=== PATIENT | female | born 1975 | race African-American/Black ===

== ENCOUNTER 2017-04-17 03:46 | Inpatient (IN) | payer MEDICAID ==
[2017-04-17] MEDS ORDERED: SUBLIMAZE IV ONE (05:06)
[2017-04-17] MEDS ORDERED: LACTATED RINGERS 1,000 ML IV ONE (05:06)
[2017-04-17 05:48] LABS: Hematocrit 40.5 % (30.3-42.9); Hemoglobin 13.2 gm/dl (10.1-14.3); Mean Corpuscular HGB Conc 33 % (30-34); Mean Corpuscular Hemoglobin 28 pg (28-32); Mean Corpuscular Volume 86 fl (79-97); Platelet Count 218 K/mm3 (140-440); Red Blood Count 4.71 M/mm3 (3.65-5.03); Red Cell Distribution Width 13.8 % (13.2-15.2); White Blood Count 13.2 K/mm3 (4.5-11.0)
[2017-04-17] MEDS: LACTATED RINGERS 1,000 ML IV SCH ×4 (06:22→23:20)
[2017-04-17] MEDS ORDERED: ePHEDrine SULFATE ONE ×2 (06:28→10:24)
[2017-04-17] MEDS ORDERED: ePHEDrine SULFATE IV PRN (06:51)
[2017-04-17] MEDS ORDERED: NARCAN 2 MG/2 ML IV PRN (06:51)
[2017-04-17] MEDS ORDERED: fentaNYL-BUPIV 2 MCG/ML-0.125% 200 MCG/100 ML BAG EPIDURAL ONE (06:51)
--- NOTE | 2017-04-17 06:51 | Anesthesia Consultation ---
Anesthesia Consult and Med Hx Date of service: 04/17/17 - Airway Anesthetic Teeth Evaluation: Good ROM Head & Neck: Adequate Mental/Hyoid Distance: Adequate Intubation Access Assessment: Probably Good - Pre-Operative Health Status ASA Pre-Surgery Classification: ASA2, Emergency Proposed Anesthetic Plan: Epidural, Spinal - Pulmonary Hx Asthma: No COPD: No Hx Pneumonia: No - Cardiovascular System Hx Hypertension: No - Central Nervous System Hx Seizures: No Hx Psychiatric Problems: No - Endocrine Hx Renal Disease: No Hx End Stage Renal Disease: No Hx Hypothyroidism: No Hx Hyperthyroidism: No - Hematic Hx Anemia: No Hx Sickle Cell Disease: No - Other Systems Hx Alcohol Use: No
[2017-04-17] MEDS ORDERED: fentaNYL-BUPIV 2 MCG/ML-0.125% 200 MCG/100 ML BAG EPIDURAL SCH (07:00)
[2017-04-17] MEDS ORDERED: PITOCin/NS 20 UNIT/1000ML DRIP 20,000 MILLIUNITS/1,000 ML BAG IV ONE (07:38)
--- NOTE | 2017-04-17 07:46 | History and Physical Report ---
History of Present Illness Date of examination: 04/17/17 Date of admission: 04/17/17 05:37 Chief complaint: contractions History of present illness: Pt presents in active labor. EDC Calculations LMP: 04/29/2018 Past History : 3 Term Births: 1 Living Children: 1 Para: 1 Aborta: 1 Spont. Ab: 1 # 1 Delivery date: 05/25/2015 Delivery type: SAB # 2 Delivery date: 10/11/2015 Weeks Gestation: 40+4d Delivery type: Delivery location: [place] Sex: Male weight: 6-8 Past Medical History: Negative Past Medical History Past Surgical History: negative Past Medical History Anesthesia Complications: negative Anemia: negative Autoimmune Disorder: negative Bleeding Disorder: negative Blood Transfusions: negative Breast Disease: negative Diabetes: negative Heart Disease: negative Hypertension: negative Hepatitis/Liver Disease: negative Kidney Disease/UTI: negative Neurologic/Epilepsy/Migraines: negative Phlebitis/Varicosities: negative Psychiatric: negative Pulmonary Disease/Asthma: negative Thyroid Disease: negative Hospitalizations: negative Surgery (Non-rn practitioner): negative Abnormal PAP: negative ALTHEA Exposure: negative Infertility: negative Uterine Anomaly: negative Uterine Surgery (not C/S): negative Other Gynecologic Problems: negative Infection History Hx of STD: none Personal hx. of genital herpes: no Partner hx. of genital herpes: no Varicella/Chicken Pox Status: Previous Disease TB Risk: no Genetic History ADVANCED MATERNAL AGE Congenital Heart Defect: Mom: no Dad: no Anjelica Disease: Mom: no Dad: no Thalassemia Mom: no Dad: no Neural Tube Defect Mom: no Dad: no Down's Syndrome Mom: no Dad: no Denys-Sachs Mom: no Dad: no Sickle Cell Disease/Trait Mom: no Dad: no Hemophilia Mom: no Dad: no Muscular Dystrophy Mom: no Dad: no Cystic Fibrosis Mom: no Dad: no [place] Chorea Mom: no Dad: no Mental Retardation Mom: no Dad: no Fragile X Mom: no Dad: no Other Genetic/Chromosomal Disorder Mom: no Dad: no Child w/other defect Mom: no Dad: no Enviromental Exposures Xray Exposure: no Medication, drug, or alcohol use since LMP: no Chemical/Other Exposure: no Exposure to Cat Liter: no Hx of Parvovirus (Fifth Disease): no Active Medications (reviewed today): PNV () Current Allergies (reviewed today): No known allergies Past History Past Medical History: no pertinent history Past Surgical History: no surgical history 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 PAP smear Family/Genetic History: none Social history: no significant social history, - Obstetrical History Expected Date of Delivery: 04/29/17 Actual Gestation: 38 Week(s) 2 Day(s) : 3 Spontaneous Abortions: 1 Number of Living Children: 1 Medications and Allergies Allergies Allergy/AdvReac Type Severity Reaction Status Date / Time No Known Allergies Allergy Unverified 04/17/17 03:52 Active Meds: Active Medications Ephedrine Sulfate (Ephedrine Sulfate) 10 mg IV Q2M PRN PRN Reason: Hypotension Stop: 04/17/17 15:00 Last Admin: 04/17/17 07:01 Dose: 10 mg Lactated Ringer's (Lactated Ringers) 1,000 mls @ 125 mls/hr IV DIRECT JHON Last Admin: 04/17/17 07:23 Dose: 125 mls/hr Fentanyl/Bupivacaine/Sodium Chlor (Fentanyl-Bupiv 2 Mcg/Ml-0.125%) 200 mcg in 100 mls @ 12 mls/hr EPIDURAL TITR JHON PRN Reason: Protocol Last Admin: 04/17/17 07:21 Dose: 12 mls/hr Naloxone HCl (Narcan 2 Mg/2 Ml) 0.2 mg IV Q5M PRN PRN Reason: Respiratory sedation Stop: 04/17/17 23:59 Review of Systems All systems: negative - Vital Signs Vital signs: Vital Signs Pulse BP 69 122/83 04/17/17 04:00 04/17/17 04:00 Temp Pulse Resp BP Pulse Ox 98.5 F 84 18 97/53 93 04/17/17 05:36 04/17/17 07:48 04/17/17 05:36 04/17/17 07:47 04/17/17 07:48 - Physical Exam Lungs: Positive: Normal air movement Abdomen: Positive: normal appearance, soft, normal bowel sounds. Negative: distention, tenderness, guarding Genitourinary (Female): Positive: normal external genitalia, normal perenium - Obstetrical FHR: category 1 Cervical Dilatation: 8.5 (AROM-CLEAR FLUID NOTED) Cervical Effacement Percentage: 90 station: -1 Uterine Contraction Frequency (min): mild Uterine Contraction Pattern: Regular Results Result Diagrams: 04/17/17 05:30 Abnormal lab results 04/17/17 Range/Units 05:30 WBC 13.2 H (4.5-11.0) K/mm3 All other labs normal. Assessment and Plan - Patient Problems (1) 38 weeks gestation of Current Visit: Yes Status: Acute (2) AMA (advanced maternal age) multigravida 35+ Current Visit: Yes Status: Acute Qualifiers: Trimester: T (3) Gestational diabetes mellitus Current Visit: Yes Status: Acute Qualifiers: Gestational diabetes mellitus control: G Trimester: T (4) Active labor at term Current Visit: Yes Status: Acute Plan to address problem: -start pitocin at this time -anticipate vaginal delivery
[2017-04-17] MEDS ORDERED: PITOCin/NS 30 UNIT/500ML 30 UNITS/500 ML BAG IV SCH (09:00)
[2017-04-17] MEDS ORDERED: MINERAL OIL ONE (09:29)
[2017-04-17] MEDS ORDERED: BICITRA ONE (09:47)
[2017-04-17] MEDS ORDERED: REGLAN ONE (09:48)
[2017-04-17] MEDS ORDERED: PEPCID IV ONE (09:48)
[2017-04-17] MEDS ORDERED: ANCEF/STERILE WATER 2 GM/20 ML 2 GM/20 ML SYRINGE IV ONE (10:03)
[2017-04-17] MEDS ORDERED: XYLOCAINE MPF 2% ONE ×2 (10:06→10:48)
[2017-04-17] MEDS ORDERED: MORPHINE ONE ×2 (10:16)
[2017-04-17] MEDS ORDERED: WATER FOR IRRIG STERILE IR ONE (10:32)
[2017-04-17] MEDS ORDERED: NACL 0.9% IR ONE (10:34)
[2017-04-17] MEDS ORDERED: VERSED ONE (10:52)
[2017-04-17] MEDS ORDERED: SUBLIMAZE ONE (10:57)
[2017-04-17] MEDS ORDERED: ZOFRAN IV PRN (11:20)
[2017-04-17] MEDS ORDERED: NARCAN 0.4 MG/1 ML IV PRN ×2 (11:20→11:46)
--- NOTE | 2017-04-17 11:20 | Anesthesia Day of Surgery ---
Anesthesia Day of Surgery - Day of Surgery Patient Examined: Yes Patient H&P Reviewed: Yes Patient is NPO: Yes
--- NOTE | 2017-04-17 11:45 | Operative Report ---
Operative Report Operative Report: Date of procedure: 04/17/2017 Pre-operative diagnosis: 38 week gestation Advanced maternal age Gestational diabetes Failure to descend Desires permanent sterilization Post-operative diagnosis: Same plus uterine fibroids Procedure name(s): Primary low transverse section via Pfannenstiel skin incision Bilateral tubal ligation via modified Hague method hemorrhage Surgeon: Dr. 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 50 mL of blood-tinged urine at end of the procedure Fluids: 2 L Findings: Liveborn female in direct OP presentation. Weight 6 lbs. 1 oz. Apgars of 8 and 9 at one and 5 minutes. Enlarged uterus with approximately 4-5 fibroids noted ranging in size is from 5 cm to 2 cm on the posterior fundal and anterior portion of the uterus Grossly normal fallopian tubes and ovaries bilaterally Indications: Patient presented in active labor. Patient progressed to completely dilated completely effaced and 0 station. With pushing patient was noted to have deep variables that were repetitive. With pushing patient was also noted not to have a change in station. Decision was made at that time to proceed to the operating room for primary due to failure to descend and category 2 tracing. Procedure: Patient was taking to the operating room. Patient was then prepped and draped in sterile fashion after anesthesia was found to be adequate. A low transverse skin incision was made with the scalpel through previous incisional scar and carried down to the underlying layer of fascia with the Bovie. The fascia was then incised in the midline and this incision was extended bilaterally with the Bovie. The superior aspect of the fascia was grasped with Florencia clamps tented upward and dissected off of the anterior rectus muscles with the Bovie. In similar fashion the inferior aspect of the fascia was grasped with Florencia clamps tented upward and dissected off of the anterior rectus muscles. The rectus muscles were then bluntly divided in the midline. The peritoneum was identified and entered into sharply. The bladder blade was placed. The bladder flap was created using the Metzenbaum scissors. The bladder blade was replaced. A lower transverse uterine incision was made with the scalpel and extended bilaterally with the bandage scissors. The infant's head was then delivered atraumatically. The anterior shoulder and rest of infant delivered without difficulty. There was a body cord 1 that was easily reduced. The umbilical cord was clamped x2. The cord was cut. The was then placed in sterile bassinet. The placenta was manually extracted in its entirety. The uterus was exteriorized and cleared of all clots and debris. The uterine incision was closed using 0 Vicryl in a running locking fashion. A second imbricating layer of the same suture was then created. Attention was then turned to the fallopian tubes. The tube was grasp with a [place]. A knuckle of the fallopian tube was suture ligated x2 and then transected. The ostia were then cauterized with the Bovie. This procedure was done bilaterally. The uterus was returned to the abdomen withdifficulty due to the large size of the uterus and the fibroids. The gutters were also irrigated. The anterior rectus muscles were reapproximated using 3-0 Vicryl. The anterior rectus fascia was reapproximated using 0 Vicryl in a running fashion. The subcuticular fat was reapproximated using 2-0 Vicryl in a running fashion. The skin was reapproximated with 4-0 Monocryl with subcuticular stitch. The patient tolerated the procedure well. Sponge lap and needle counts were all correct x3. Patient was taken to the recovery room awake and in stable condition.
[2017-04-17] MEDS ORDERED: LANSINOH TP PRN (11:46)
[2017-04-17] MEDS ORDERED: TORADOL IV PRN (11:46)
[2017-04-17] MEDS ORDERED: TUCKS PAD TP PRN (11:46)
[2017-04-17] MEDS ORDERED: PITOCin/NS 20 UNIT/1000ML DRIP 20 UNITS/1,000 ML BAG IV SCH (12:00)
[2017-04-17] MEDS ORDERED: SODIUM CHLORIDE FLUSH SYRINGE 10 ML IV NR (12:00)
--- NOTE | 2017-04-17 12:40 | Post Anesthesia Evaluation ---
- Post Anesthesia Evaluation Patient Participated: Yes Airway Patent: Yes Stable Respiratory Function: Yes Nausea/Vomiting: No Temp > 96.8F: Yes Pain Manageable: Yes Adequeate Hydration: Yes Anesthesia Complications: No Block Receding Appropriately: Yes Patient on Ventilator: No
[2017-04-17] MEDS: ANCEF/NS 1 GM/50 ML 1 GM/50 ML BAG IV SCH (17:15)
[2017-04-17] MEDS ORDERED: BENADRYL IV PRN (22:32)
[2017-04-18] MEDS: ANCEF/NS 1 GM/50 ML 1 GM/50 ML BAG IV SCH (01:00)
[2017-04-18 01:35] LABS: Hematocrit 29.5 % (30.3-42.9); Hemoglobin 9.7 gm/dl (10.1-14.3)
--- NOTE | 2017-04-18 07:06 | Progress Note ---
Assessment and Plan - Patient Problems (1) delivery delivered Onset Date: ~04/17/17 Current Visit: Yes Status: Acute Plan to address problem: Resting w/o complaint voiced. VSS FF below umb Lochia small Dressing D&I H&H drop r/t blood loss from surgery. Doing well s/p c/s P: continue pathway Advance diet and activity today Subjective - Subjective Date of service: 04/18/17 (resting No c/o voiced) Principal diagnosis: Day # 1 s/p section Patient reports: voiding normally, pain well controlled, ambulating normally : doing well Objective - Vital Signs Latest vital signs: Vital Signs Temp Pulse Resp BP BP Pulse Ox 04/18/17 05:14 98.3 F 84 16 110/58 04/18/17 01:12 16 04/18/17 00:00 98.0 F 78 18 102/53 04/17/17 20:00 98.2 F 84 18 107/56 04/17/17 17:21 98.5 F 88 18 104/48 94 04/17/17 13:10 97.8 F 89 112/64 04/17/17 12:45 88 17 104/59 96 04/17/17 12:41 99 F 04/17/17 12:40 88 22 106/64 98 04/17/17 12:35 91 H 20 113/69 96 04/17/17 12:30 90 18 107/59 96 04/17/17 12:25 91 H 15 111/63 97 04/17/17 12:20 91 H 17 115/60 97 04/17/17 12:15 88 17 106/63 100 04/17/17 12:10 89 18 121/63 99 04/17/17 12:05 91 H 16 112/61 100 04/17/17 12:00 91 H 17 115/64 100 04/17/17 11:55 92 H 20 110/60 99 04/17/17 11:50 93 H 18 104/46 100 04/17/17 11:45 94 H 21 110/73 99 04/17/17 11:40 95 H 21 117/72 98 04/17/17 11:35 78 20 98 04/17/17 11:34 98.8 F 04/17/17 09:52 91 H 105/53 04/17/17 09:36 115 H 104/45 04/17/17 09:32 94 H 84 04/17/17 09:29 89 100 04/17/17 09:24 109 H 98 04/17/17 09:22 105 H 123/58 04/17/17 09:20 123 H 93 04/17/17 09:19 117 H 93 04/17/17 09:14 68 L 04/17/17 09:13 25 L 79 L 04/17/17 09:09 79 100 04/17/17 09:07 86 111/67 04/17/17 09:04 79 99 04/17/17 08:59 75 100 04/17/17 08:58 82 94 04/17/17 08:54 90 95 04/17/17 08:52 80 104/63 04/17/17 08:49 77 97 04/17/17 08:46 79 94 04/17/17 08:44 90 97 04/17/17 08:39 80 99 04/17/17 08:35 83 108/65 04/17/17 08:34 87 98 04/17/17 08:29 98 H 98 04/17/17 08:24 92 H 99 04/17/17 08:19 81 98 04/17/17 08:14 85 98 04/17/17 08:00 85 99 04/17/17 07:57 78 93 04/17/17 07:55 87 104/57 97 04/17/17 07:53 96 H 92/55 04/17/17 07:51 85 99/56 04/17/17 07:50 83 97 04/17/17 07:49 92 H 98/54 04/17/17 07:48 84 93 04/17/17 07:47 94 H 97/53 04/17/17 07:45 95 H 105/56 99 04/17/17 07:43 77 103/55 04/17/17 07:41 97 H 96/55 04/17/17 07:40 95 H 98 04/17/17 07:39 81 103/56 04/17/17 07:37 90 96/58 04/17/17 07:35 82 103/60 97 04/17/17 07:33 86 99/60 04/17/17 07:32 85 94/54 04/17/17 07:31 96 H 87/53 04/17/17 07:30 94 H 98 04/17/17 07:29 82 103/59 04/17/17 07:27 88 99/57 04/17/17 07:25 90 101/64 99 04/17/17 07:23 83 97/55 04/17/17 07:21 96 H 95/55 04/17/17 07:20 97 H 99 04/17/17 07:19 86 104/64 04/17/17 07:16 90 108/68 04/17/17 07:15 90 99 04/17/17 07:13 86 114/62 04/17/17 07:11 83 108/61 04/17/17 07:10 82 98 04/17/17 07:09 91 H 111/63 04/17/17 07:07 82 115/64 04/17/17 07:05 87 100 Intake and Output 04/17/17 04/18/17 04/18/17 22:59 06:59 14:59 Intake Total 1010 1135.833 Output Total 1300 1600 Balance -290 -464.167 Intake: IV 50 895.833 ANCEF/NS 1 GM/50 ML 1 gm 50 In 50 ml @ 100 mls/hr IV Q8H JHON Rx#:[id number] Lactated Ringers 1,000 ml 895.833 @ 125 mls/hr IV DIRECT JHON Rx#:[id number] Oral 960 240 Output: Urine 1300 1600 Indwelling Catheter 1300 800 Void 800 Other: Total, Intake Amount 240 120 Total, Output Amount 600 800 - Exam Breasts: Present: normal Cardiovascular: Present: Regular rate Lungs: Present: Normal air movement Abdomen: Present: normal appearance, soft Uterus: Present: normal, fundal height below umbilicus Extremities: Present: normal, edema Deep Tendon Reflex Grade: Normal +2 Incision: Present: normal, dry, intact, dressed (to be removed this AM) - Labs Labs: Abnormal lab results 04/18/17 Range/Units 01:11 Hgb 9.7 L D (10.1-14.3) gm/dl Hct 29.5 L D (30.3-42.9) %
[2017-04-18] MEDS: NORCO 5/325 PO PRN ×2 (08:10→17:32)
[2017-04-18] MEDS: MOTRIN PO PRN ×2 (08:11→17:32)
--- NOTE | 2017-04-18 10:56 | Progress Note ---
Subjective Date of service: 04/18/17 Principal diagnosis: Day # 1 s/p section Interval history: 1st POD after Patient is in the bed, comfortable. Pain is well controlled with pain meds. Ambulated well. No residual neurological deficit. Pruritus is not significant. No anesthesia complications Objective - Constitutional Vitals: Vital Signs - 12hr 04/18/17 04/18/17 04/18/17 00:00 01:12 05:14 Temperature 98.0 F 98.3 F Pulse Rate 78 84 Respiratory 18 16 16 Rate Blood Pressure 102/53 110/58 [Left] Blood Pressure [Right] 04/18/17 08:25 Temperature 98.1 F Pulse Rate 76 Respiratory 20 Rate Blood Pressure [Left] Blood Pressure 110/60 [Right] - Labs CBC & Chem 7: 04/18/17 01:11 Labs: Abnormal lab results 04/18/17 Range/Units 01:11 Hgb 9.7 L D (10.1-14.3) gm/dl Hct 29.5 L D (30.3-42.9) %
[2017-04-19] MEDS: NORCO 5/325 PO PRN ×2 (04:23→11:17)
--- NOTE | 2017-04-19 07:44 | Progress Note ---
Assessment and Plan patient doing well, no complaints. pain well controlled. incision d&I, lochia scant, VSSAF, H&H stable w/o s/s anemia. Patient desires d/c home today if is able to go, otherwise will go home tomorrow. - Patient Problems (1) delivery delivered Onset Date: ~04/17/17 Current Visit: Yes Status: Acute Subjective - Subjective Date of service: 04/19/17 Principal diagnosis: Day # 2 s/p section Patient reports: appetite normal, voiding normally, pain well controlled, flatus , ambulating normally, no dizzy ambulation, no nauseated Iva: doing well, nursing well (breast and bottle feeding, currently in room under phototherapy) Objective - Vital Signs Latest vital signs: Vital Signs Temp Pulse Resp BP 04/19/17 05:23 18 04/19/17 04:23 16 04/19/17 00:40 97.8 F 72 18 96/61 04/18/17 16:45 98.2 F 81 20 107/54 04/18/17 08:25 98.1 F 76 20 110/60 Intake and Output 04/18/17 04/19/17 04/19/17 22:59 06:59 14:59 Intake Total 480 240 Balance 480 240 Intake: Oral 360 Intake, Free Water 120 240 Other: Total, Intake Amount 240 # Voids Void 1 1 - Exam Breasts: Present: normal, Cardiovascular: Present: Regular rate Lungs: Present: Clear to auscultation, Normal air movement Abdomen: Present: normal appearance, soft, normal bowel sounds Uterus: Present: normal, firm, fundal height at umbilicus Extremities: Present: normal Deep Tendon Reflex Grade: Normal +2 Incision: Present: normal, dry, intact
--- NOTE | 2017-04-19 07:46 | Discharge Summary ---
Providers - Providers Date of Admission: 04/17/17 05:37 Date of discharge: 04/19/17 (desires d/c home) Attending physician: FRANCIE RAMEY Primary care physician: FRANCIE RAMEY Hospitalization Reason for admission: active labor Delivery: Procedure: primary low transverse Incision: normal, dry, intact Other procedures: none complications: none Discharge diagnosis: IUP at term delivered [place] baby: female Hospital course: uncomplicated c/s delivery Condition at discharge: Good Disposition: DC-01 TO HOME OR SELFCARE - Discharge Diagnoses (1) delivery delivered Status: Acute Plan - Discharge Medications Prescriptions: Docusate Sodium [Colace] 100 mg PO BID PRN #60 capsule PRN Reason: Constipation Ferrous Sulfate [Feosol 325 MG tab] 325 mg PO BID #60 tablet Ibuprofen [Motrin 800 MG tab] 800 mg PO Q8HR PRN #30 tablet PRN Reason: Pain oxyCODONE /ACETAMINOPHEN [Percocet 5/325] 2 tab PO Q4HR #30 tab - Provider Discharge Summary Activity: routine, no sex for 6 weeks, no heavy lifting 4 weeks, no strenuous exercise Diet: routine Instructions: routine Additional instructions: [] Smoking cessation referral if applicable(refer to patient education folder for contact #) [] Refer to [facility] Booklet Call your doctor immediately for: * Fever > 100.5 * Heavy vaginal bleeding ( >1 pad per hour) * Severe persistent headache * Shortness of breath * Reddened, hot, painful area to leg or breast * Drainage or odor from incision. * Keep incision clean and dry at all times and follow doctor's instructions regarding bathing/showering - Follow up plan Follow up: FRANCIE RAMEY MD [Primary Care Provider] - 7 Days (Congratulations!! Please call [phone] to schedule an appointment for 1 week. Call for any questions or concerns. )
[2017-04-19 08:56] VITALS: BP 101/61
== END 2017-04-19 15:40 | disposition home or self-care (01) | DRG 765 ==
LOC: TRG 03:46 → LD 05:37 → OB 13:15
PROVIDERS: ADMIT Obstetrics & Gynecology; ATTEND Obstetrics & Gynecology
PROC: 10D00Z1 Extraction of Products of Conception, Low, Open Approach (ICD-10-PCS; principal; 2017-04-17)
PROC: 0UB70ZZ Excision of Bilateral Fallopian Tubes, Open Approach (ICD-10-PCS; 2017-04-17)
DX: O24.429 Gestational diabetes mellitus in childbirth, unspecified control (principal); O72.1 Other immediate postpartum hemorrhage; O62.1 Secondary uterine inertia; O99.03 Anemia complicating the puerperium; Z3A.38 38 weeks gestation of pregnancy; Z37.0 Single live birth; Z30.2 Encounter for sterilization; O34.13 Maternal care for benign tumor of corpus uteri, third trimester
CPT/HCPCS: 36415; 85014; 85018; 85027; 86850; 86900; 86901; 88302; 88307; 99211; G0463; J0690; J1200; J1885; J2250; J2270; J2590; J2765; J3010; J7120